=== PATIENT | male | born 1955 | race American Indian/Alaskan Native ===

== ENCOUNTER 2016-05-24 07:36 | Day surgery (SDC) | payer MEDICAID ==
[2016-05-24 08:58] LABS: Hematocrit 39.8 % (35.5-45.6); Hemoglobin 12.8 gm/dl (11.8-15.2); Mean Corpuscular HGB Conc 32 % (32-34); Mean Corpuscular Hemoglobin 32 pg (28-32); Mean Corpuscular Volume 98 fl (84-94); Platelet Count 288 K/mm3 (140-440); Red Blood Count 4.07 M/mm3 (3.65-5.03); Red Cell Distribution Width 14.2 % (13.2-15.2); White Blood Count 6.3 K/mm3 (4.5-11.0)
[2016-05-24] MEDS ORDERED: NACL 0.9% 500 ML 500 ML IV SCH (09:00)
[2016-05-24 09:08] LABS: INR 0.96 (0.87-1.13)
[2016-05-24 09:12] LABS: Anion Gap 18 mmol/L; BUN/Creatinine Ratio 8.75; Blood Urea Nitrogen 7 mg/dL (9-20); Carbon Dioxide 27 mmol/L (22-30); Chloride 105.8 mmol/L (98-107); Glucose 71 mg/dL (75-100); Sodium 147 mmol/L (137-145)
[2016-05-24 09:51] LABS: Basophils % (Manual) 0 % (0.0-1.8); Blastocytes % (Manual) 0 %
[2016-05-24 09:53] LABS: Diff Status Complete; Giant Platelets Few; RBC Morphology Normal
[2016-05-24] MEDS ORDERED: VERSED ONE (10:08)
[2016-05-24] MEDS ORDERED: SUBLIMAZE ONE (10:09)
[2016-05-24] MEDS ORDERED: HEPARIN/NS 5000 UNIT/500ML(CATH LAB) 1,000 ML IR ONE (10:10)
[2016-05-24] MEDS ORDERED: NITROGLYCERIN SYRINGE 3 ML ONE (10:26)
[2016-05-24] MEDS: CALAN ONE ×2 (10:36→10:47)
[2016-05-24] MEDS: HEPARIN 10,000 UNITS/10 ML ONE ×2 (10:38→10:47)
[2016-05-24] MEDS: XYLOCAINE 2% INFILTRATI ONE ×2 (10:38→10:45)
--- NOTE | 2016-05-24 11:18 | Short Stay Summary ---
Short Stay Documentation Date of service: 05/24/16 - History H&P: obtained from office - Allergies and Medications Current Medications: Allergies aspirin Allergy (Verified 02/06/16 11:03) Unknown Home Medications Medication Instructions Recorded Confirmed Last Taken Type ALBUTEROL Inhaler [ProAir HFA 2 puff IH QID PRN #1 inhalation 02/06/16 05/24/16 Unknown Rx Inhaler] predniSONE [Deltasone] 20 mg PO QDAY #5 tab 02/06/16 05/24/16 05/23/16 Rx Insulin Glulisine [Apidra] 1 vial SUB-Q ACHS 02/08/16 05/24/16 05/23/16 History AtorvaSTATin [Lipitor] 40 mg PO QHS #30 tablet 02/12/16 05/24/16 05/23/16 Rx Famotidine [Pepcid] 20 mg PO BID #60 tablet 02/12/16 05/24/16 05/23/16 Rx ISOSORBIDE MONOnitrate [Imdur ER] 60 mg PO QDAY #30 tablet 02/12/16 05/24/16 Rx Insulin Glargine [Lantus VIAL] 20 units SUB-Q QHS #30 units 02/12/16 05/24/16 Unknown Rx Metoprolol [Lopressor TAB] 50 mg PO BID #60 tablet 02/12/16 05/24/16 05/23/16 Rx Prasugrel [Effient] 10 mg PO QDAY #30 tablet 02/12/16 05/24/16 05/23/16 Rx amLODIPine [Norvasc] 5 mg PO QDAY #30 tablet 02/12/16 05/24/16 05/23/16 Rx Active Medications Sodium Chloride (Nacl 0.9% 500 Ml) 500 mls @ 50 mls/hr IV DIRECT ABDOUL Stop: 05/24/16 18:59 Last Admin: 05/24/16 08:44 Dose: 50 mls/hr - Brief post op/procedure progress note Date of procedure: 05/24/16 Pre-op diagnosis: pvd Post-op diagnosis: same Procedure: see report Anesthesia: local Estimated blood loss: none Pathology: none - Disposition Condition at discharge: Good Disposition: DISCHARGED TO HOME OR SELFCARE - Discharge Diagnoses (1) CAD (coronary artery disease) Status: Chronic Qualifiers: Coronary Disease-Associated Artery/Lesion type: [place] artery [place] vs. transplanted heart: [place] heart Associated angina: with stable angina Qualified Code(s): I25.118 - Atherosclerotic heart disease of [place] coronary artery with other forms of angina pectoris (2) Hypertension Status: Chronic Qualifiers: Hypertension type: essential hypertension Qualified Code(s): I10 - Essential (primary) hypertension (3) Hyperlipemia, mixed Status: Chronic (4) PAD (peripheral artery disease) Status: Suspected (5) Diabetes mellitus, new onset Status: Chronic (6) Tobacco abuse disorder Status: Chronic Short Stay Discharge Plan Activity: advance as tolerated Diet: low fat, low cholesterol Wound: keep clean and dry Follow up with: PRIMARY CAREMD [Primary Care Provider] - 7 Days
[2016-05-24] MEDS ORDERED: D50W (25GM) IV ONE (12:13)
[2016-05-24 12:41] VITALS: BP 158/71
--- NOTE | 2016-05-24 17:02 | Cardiac Catherization Report ---
PERIPHERAL ANGIOGRAM CLINICAL INFORMATION: This is a 61-year-old -[place] gentleman with history of hypertension, cholesterol, known coronary artery disease, smoker who has some claudication symptoms, but abdominal aorta showed bilateral common iliac stenosis on ultrasound and is here for a peripheral angiogram. Peripheral angiogram performed via the right radial artery. Sterile technique, local anesthesia, 5-[place] radial sheath inserted. PROCEDURES IN DETAIL: Pigtail catheter was placed into the distal abdominal aorta and runoff was done, which showed the following; 1. Bilateral renal arteries are patent. 2. Distal aorta is calcified, but patent. 3. Right common iliac has an ectasia with 20% lesion, calcified left common iliac patent, large caliber. 4. Bilateral external and internal iliacs patent. 5. Bilateral common femoral artery and profunda are patent. 6. Right SFA proximal has a smooth 20-30% lesion that arises from mid to distal. The popliteal is patent with TP trunk patent. Anterior tibialis 100% proximally. Peroneal and posterior tibial are patent. 7. Left SFA is patent from proximally and distally, popliteal is patent, extremely sluggish flow, anterior tibialis was 100%, appears to be patent peroneal and posterior tibial but very sluggish flow distally down. The pigtail catheter was taken over a guidewire, 5-[place] radial sheath was discontinued. Radial dressing applied. No hematoma. No bleeding. SUMMARY: 1. Bilateral renal arteries patent. 2. Distal aorta patent with mild calcification. 3. Right common iliac ectatic, 20% lesion. Left common iliac patent. Bilateral internal iliacs patent. Right SFA proximal 20%. The rest of the SFA is patent with 2-vessel runoff. 4. Left SFA patent with 2-vessel runoff, but extremely sluggish flow. 5. The patient needs aggressive medical management, smoking cessation, dual antiplatelet therapy. JOB# [id number] LUIS ARMANDO/GIDEON
== END 2016-05-24 13:20 | disposition home or self-care (01) ==
LOC: OPU 07:36
PROVIDERS: ATTEND Internal Medicine
DX: I70.0 Atherosclerosis of aorta (principal); I25.10 Atherosclerotic heart disease of native coronary artery without angina pectoris; I10 Essential (primary) hypertension; E78.2 Mixed hyperlipidemia; E11.9 Type 2 diabetes mellitus without complications; F17.210 Nicotine dependence, cigarettes, uncomplicated; Z79.4 Long term (current) use of insulin; Z79.899 Other long term (current) drug therapy
CPT/HCPCS: 36200; 36415; 75630; 80048; 82962; 85007; 85025; 85610; 85730; 96374; C1894; J1644; J7040; Q9967; 75716; J2250; J3010